=== PATIENT | female | born 1975 | race Caucasian/White ===

== ENCOUNTER 2021-02-21 14:22 | Inpatient (IN) | payer OTHER, BC ==
[~2021-02-21] VITALS: Ht 172.7 cm; Wt 86.0 kg
--- NOTE | ~2021-02-21 | OR ---
[facility] [address] [place] [address] Draft DATE OF OPERATION: 03/05/2021 SURGEON: Haleigh Jackson MD LOBSTER MAN: Bryanna Elias DO PREOPERATIVE DIAGNOSIS: Uterovaginal prolapse, stress incontinence. POSTOPERATIVE DIAGNOSIS: Uterovaginal prolapse, stress incontinence. PROCEDURE: Total vaginal hysterectomy, bilateral salpingectomy, obturator sling, cystoscopy, posterior repair. ANESTHESIA: Spinal with IV sedation. ESTIMATED BLOOD LOSS: 200 mL. DRAINS: Abreu catheter. PACKS: Vaginal. INDICATIONS AND FINDINGS: The patient is a 45-year-old female who has been having increasing symptoms related to her stress incontinence as well as her prolapse and desired definitive treatment. At the time of surgery, she had a normal-size uterus with moderate prolapse. She did have a grade 2 cystocele and a grade 2 rectocele. At hysterectomy, the tubes and ovaries were normal. After hysterectomy, the cystocele had resolved. DESCRIPTION OF PROCEDURE: The patient was prepped and draped in the dorsal lithotomy position. A weighted speculum was placed. The anterior and posterior lips of the cervix were grasped with single-tooth tenaculum. Cervix was injected with 1% lidocaine with 1:200,000 PATIENT NAME: VERONICA NEVILLE OPERATIVE REPORT DATE OF : 75 REPORT #: [id number] PHYSICIAN: HALEIGH JACKSON MD PCP: RIVKA ARGUETA MD REPORT IS CONFIDENTIAL AND NOT TO BE RELEASED WITHOUT AUTHORIZATION [facility] [address] [place], [place] [address] [facility]. The posterior cul-de-sac was then entered sharply and the incision extended. The uterosacral ligaments were grasped bilaterally, divided and suture ligated with 0 Vicryl. Following this, the [place] speculum was placed into the posterior fornix. Following this, the vaginal mucosa was circumscribed with a knife circumferentially. The dissection was done sharply, bringing the bladder up off the cervix. The anterior peritoneum was identified and was entered sharply. Following this, another bite was taken in the cardinal ligament areas on each side with each divided and suture ligated with 0 Vicryl. Following this, another bite was taken taking care to incorporate both the anterior and posterior leaves of the peritoneum. This was divided and suture ligated with 0 Vicryl. This was done bilaterally. Following this, a bite was taken into the lower aspect of the broad ligament and divided and suture ligated with 0 Vicryl. This was done bilaterally. This allowed for the remaining broad ligament pedicles to be clamped and divided. This was followed by a free tie of 0 Vicryl followed by suture ligature of 0 Vicryl. This was also done bilaterally. Following this, the tube was identified on the patient's right side. It was grasped with Sejal clamp and as much tube as possible was removed by clamping across and dividing. A free tie of 0 Vicryl was placed. The same procedure was carried out on the patient's left side. Following this, there was some bleeding noted at the level of the cuff at the uterine vessel areas. A asmlqk-rc-dbbyl suture of 0 Vicryl was placed. The peritoneum was identified and was closed with a running suture of 3-0 Vicryl. The cuff itself was closed with a running locking stitch of 0 Vicryl. Following this, attention was directed anteriorly. The cystocele had resolved with the hysterectomy. The urethra was identified and an incision made in the mid urethral area with the knife. This was done superficially and then the vaginal mucosa was from the underlying tissue with a combination of blunt and sharp dissection. This dissection was carried out laterally and behind the pubic bones bilaterally. Following this, the obturator notch was identified and incision made over this with a knife. The trocars were then placed. These were started at the lowest most medial portion of the obturator notch and immediately brought behind the pubic rami and into the apex of the vaginal incision. This was done bilaterally. Following this, the Abreu catheter was removed and cystoscopy was done. The patient had received IV fluorescein. The cystoscopy was done and there was no evidence of any bladder injury. There was no evidence of any incursion of the trocars. Free spill of fluorescein stained urine was seen bilaterally at the ureteral orifices. Following this, the bladder was drained and the Abreu catheter was replaced. The sling was then attached to the trocars and was pulled through the skin incisions, taking care to keep the sling in the midurethral position with appropriate tension. The cover was then incised and slipped off the sling. The excess sling material was trimmed at the skin. Following this, the vaginal mucosa was closed with a running suture of 2-0 Vicryl. The skin incisions were closed with interrupted sutures of 3-0 Vicryl Rapide. At this point, the rectocele repair was begun. A triangle of tissue was removed from the perineal body with the knife. The vaginal mucosa was then undermined, incised in the midline to the apex of the vagina. The vaginal mucosa was PATIENT NAME: VERONICA NEVILLE OPERATIVE REPORT DATE OF : 75 REPORT #: [id number] PHYSICIAN: HALEIGH JACKSON MD PCP: RIVKA ARGUETA MD REPORT IS CONFIDENTIAL AND NOT TO BE RELEASED WITHOUT AUTHORIZATION [facility] [address] [place], [place] [address] Draft then from the underlying tissue with a combination of blunt and sharp dissection. Following this, there was really no evidence of perirectal fascial type tissue and specific repair could not be done. The 0 Vicryl was used to plicate the levator muscles in the midline with good reduction of the defect. There was bleeding from a sinus near the lower aspect of this repair and this was fairly superficial, but required multiple sutures to allow for hemostasis in this area. Rectal examination was done both before and after these sutures were done compromising the rectal lumen. Because of the bleeding that had been going on in this area, however, Tisseel was sprayed over the posterior repair. The vaginal mucosa was then trimmed significant amount and the vaginal mucosa closed with a running suture of 2-0 Vicryl from the apex of the vagina to the hymenal ring. Additional sutures were required at the apex of the vagina as well as in the midportion to control bleeding. During the course of this evaluation, there was also seen to be some bleeding from the patient's right vaginal cuff. The edges appeared to be open on that side. Because of this, a very superficial gyxfnx-cj-kdqyb suture of 2-0 chromic was placed in this area with good control of bleeding. Following this, the posterior fourchette was recreated with running suture of 2-0 Vicryl. The perineal body was reapproximated with interrupted sutures of 2-0 Vicryl. The skin on the perineum was closed with subcuticular sutures of 2-0 Vicryl. Inspection of the vaginal vault showed good length and caliber and good hemostasis. The vaginal canal was then packed with the Premarin-coated gauze. The procedure was then complete and the patient was taken to the recovery room in good condition. All sponge and needle counts were correct. Haleigh Jackson MD PJW/MODL /[id number] cc: DO Sia Skinner MD Copies: BRYANNA ELIAS DO PATIENT NAME: VERONICA NEVILLE OPERATIVE REPORT DATE OF : 75 REPORT #: [id number] PHYSICIAN: HALEIGH JACKSON MD PCP: RIVKA ARGUETA MD REPORT IS CONFIDENTIAL AND NOT TO BE RELEASED WITHOUT AUTHORIZATION [address] [address] Draft Sia ARGUETA MD ~ PATIENT NAME: VERONICA NEVILLE OPERATIVE REPORT DATE OF : 75 REPORT #: [id number] PHYSICIAN: HALEIGH JACKSON MD PCP: RIVKA ARGUETA MD REPORT IS CONFIDENTIAL AND NOT TO BE RELEASED WITHOUT AUTHORIZATION
[~2021-02-21 14:22] MED LIST: OXYCODON-ACETA1 EAC2 PO; VITAMIN D2000 UNI1 PO
[2021-03-04] MEDS ORDERED: SPIRONOLACTONE50 MG PO (14:03)
[2021-03-04] MEDS ORDERED: MAXIMUM D3325 MCG PO (14:03)
--- NOTE | 2021-03-06 13:28 | PATH ---
[facility] [address], [place] [address] Signed SPECIMEN(S): A UTERUS, CERVIX, BILATERAL TUBES SPECIMEN SOURCE: A. UTERUS, CERVIX, BILATERAL TUBES CLINICAL HISTORY: Uterovaginal prolapse, stress incontinence. TVH, AP, sling. FINAL PATHOLOGIC DIAGNOSIS: Cervix, uterus and bilateral fallopian tubes, hysterectomy and bilateral salpingectomy: - Cervix: - Benign squamous epithelium and endocervix. - Negative for dysplasia. - Endomyometrium: - Benign proliferative endometrium. - Negative for hyperplasia and atypia. - Bilateral fallopian tubes: - Benign fimbria and fallopian tubes. DDF:cml:C2NR MICROSCOPIC EXAMINATION: Histologic sections of all submitted blocks are examined by light microscopy. These findings, together with the gross examination, support the pathologic diagnosis. GROSS DESCRIPTION: The specimen, labeled "MG, A," and designated on the requisition "cervix, uterus, bilateral tubes," is received fresh and placed in formalin and consists of a uterus (98 gram, 5.7 cm superior to inferior, 5.4 cm cornu to cornu, 4.0 cm anterior to posterior), attached cervix (2.8 cm in length x 4.5 cm in diameter) with pink-myers, wrinkled cervical mucosa and patent, irregularly-shaped os (1.2 x 1.0), and two detached, undesignated and slightly fragmented fimbriated fallopian tube segments (4.5 cm in length x 0.9 cm in diameter and 4.7 cm in length x 0.9 cm in diameter). One fallopian tube and the anterior aspect of the cervix are inked blue. Both fallopian tube segments are pink-myers and are sectioned reveal a grossly unremarkable cut surface. The fimbriae are entirely submitted. The uterine serosa is pink-myers and smooth. The specimen is opened to reveal a PATIENT NAME: VERONICA NEVILLE PATHOLOGY DATE OF : 75 REPORT #: [id number] PHYSICIAN: YAKELIN PATHOLOGY PCP: RIVKA ARGUETA MD REPORT IS CONFIDENTIAL AND NOT TO BE RELEASED WITHOUT AUTHORIZATION [facility] [address], [place] [address] Signed pink-myers to hemorrhagic endocervix (endocervical canal: 2.0 cm in length x 0.8 cm in diameter), and endometrial cavity (4.4 cm superior to inferior x 3.9 cm cornu to cornu) with myers-pink endometrial lining that measures up to 0.4 cm in thickness. The myometrium is pink-myers and trabeculated with no masses. [employer] sections are submitted as follows: Cassette Summary: (A1-A2) Fallopian tubes (A3) Cervix (A4) Endomyometrium AC (under the direct supervision of a pathologist) The Gross Description was prepared using a voice recognition system. The report was reviewed for accuracy; however, sound-alike word errors, addition and/or deletions may occur. If there is any question about this report, please contact Client Services. PERFORMING LABORATORY: The technical component was performed by [facility], [address] [place] [id number] (Tile Presser: Gunjan Ricketts MD; CLIA# [id number]). Professional interpretation was performed by [facility], [address] [facility] [address] [address] (IA# [id number]). Diagnostician: Venu Turner DO Pathologist Electronically Signed 03/06/2021 Copies: ~ PATIENT NAME: VERONICA NEVILLE PATHOLOGY DATE OF : 75 REPORT #: [id number] PHYSICIAN: YAKELIN HERR PCP: RIVKA ARGUETA MD REPORT IS CONFIDENTIAL AND NOT TO BE RELEASED WITHOUT AUTHORIZATION
[2021-03-07] MEDS ORDERED: IBUPROFEN800 MG PO (09:48)
[2021-03-07] MEDS ORDERED: KONDREMUL2.5 ML/5 M PO (09:49)
[2021-03-07] MEDS ORDERED: SENNA8.6 MG PO (09:49)
[2021-03-07] MEDS ORDERED: MECLIZINE HCL25 MG PO (09:50)
[2021-03-07] MEDS ORDERED: HYDROCODON-ACE1 EA10 PO (09:51)
== END 2021-03-07 10:20 | disposition home or self-care (01) | DRG 743 ==
LOC: DSVR 03-05 07:00 → MS 03-05 08:15
PROVIDERS: ADMIT Obstetrics & Gynecology; ATTEND Obstetrics & Gynecology
PROC: 0UT97ZZ Resection of Uterus, Via Natural or Artificial Opening (ICD-10-PCS; principal; 2021-03-05 08:15)
PROC: 0UT77ZZ Resection of Bilateral Fallopian Tubes, Via Natural or Artificial Opening (ICD-10-PCS; 2021-03-05 08:15)
DX: N81.4 Uterovaginal prolapse, unspecified (principal); Z79.899 Other long term (current) drug therapy; Z98.890 Other specified postprocedural states; E55.9 Vitamin D deficiency, unspecified; Z90.49 Acquired absence of other specified parts of digestive tract; N39.3 Stress incontinence (female) (male)
CPT/HCPCS: 00944; 80048; 85027; A9270; C1771; J0694; J1100; J1644; J1885; J2001; J2250; J2274; J2405; J2704; J2765; J3010; J7121